=== PATIENT | female | born 1940 | race Caucasian/White ===

== ENCOUNTER 2019-12-14 16:01 | Emergency (ER) | payer MEDICARE, OTHER ==
[~2019-12-14 16:01] MED LIST: ARFO15VI3 IH; BUDE0.5A3 IH; IPRA4AER IH; TIOT18CA3 IH
[2019-12-14 16:33] LABS: BASOPHILS % (AUTO) 0.7 % (0.0-5.0); EOSINOPHILS % (AUTO) 6.3 % (0.0-8.0); HEMATOCRIT 37.3 % (36-48); LYMPHOCYTES % (AUTO) 20.4 % (21.0-51.0); MEAN CORPUSCULAR HEMOGLOBIN 29.3 pg (27.0-33.0); MEAN CORPUSCULAR HGB CONC 33.5 g/dL (32.0-36.0); MEAN CORPUSCULAR VOLUME 87.4 fL (79-99); MONOCYTES % (AUTO) 5.4 % (3.0-13.0); NEUTROPHILS % (AUTO) 66.9 % (40.0-77.0); PLATELET COUNT (AUTO) 304 K/uL (130-400); RED BLOOD CELL COUNT(AUTO) 4.27 MIL/uL (4.00-5.50); RED CELL DISTRIBUTION WIDTH 14.4 % (11.0-15.5); WHITE BLOOD COUNT (AUTO) 9.5 K/uL (4.8-10.8)
[2019-12-14 16:41] LABS: APPEARANCE,URINE Clear (CLEAR); BILIRUBIN,URINE Negative (NEGATIVE); COLOR,URINE Yellow (YELLOW); GLUCOSE, URINE (UA) Negative (NEGATIVE); KETONES,URINE Negative (NEGATIVE); LEUKOCYTE ESTERASE ,URINE Negative (NEGATIVE); NITRATE,URINE Negative (NEGATIVE); OCCULT BLOOD,URINE Negative (NEGATIVE); PROTEIN,URINE Negative (NEGATIVE)
[2019-12-14 16:43] LABS: CARBON DIOXIDE 26 mmol/L (21-32); CHLORIDE 104 mmol/L (101-111); CREATININE 0.6 mg/dL (0.5-1.5); GLOMERULAR FILTR. RATE CALC 103 mL/min (>60); GLUCOSE,RANDOM 90 mg/dL (70-105); POTASSIUM 3.9 mmol/L (3.5-5.1); SODIUM SERUM 137 mmol/L (136-145); UREA NITROGEN, BLOOD 15 mg/dL (7-18)
[2019-12-14 16:54] LABS: ALANINE AMINOTRANSFERASE 10 U/L (12-78); ALBUMIN 3.7 g/dL (3.5-5.0); ASPARTATE AMINOTRANSFERASE 18 U/L (10-37); BILIRUBIN,TOTAL 0.2 mg/dL (0.2-1.0); CREATINE KINASE, TOTAL 93 U/L (21-232); MYOGLOBIN 37 ng/mL (10-92); TOTAL PROTEIN, SERUM 7.7 g/dL (6.0-8.3); TROPONIN I < 0.04 ng/mL (0.00-0.06)
[2019-12-14 17:14] LABS: BILIRUBIN,DIRECT < 0.1 mg/dL (0.0-0.3)
[2019-12-14] MEDS ORDERED: IOHEXOL 350 MG/ML 100ML INFUS..BTL IV ONE (20:26)
== END 2019-12-15 00:43 | disposition home or self-care (01) ==
LOC: EDH 16:01
DX: R10.11 Right upper quadrant pain (principal); J44.9 Chronic obstructive pulmonary disease, unspecified; Z98.890 Other specified postprocedural states; Z87.891 Personal history of nicotine dependence
CPT/HCPCS: 36415; 71045; 74174; 76700; 80053; 80076; 81003; 82550; 83874; 84484 ×2; 85025; 93005 ×2; 99285; Q9967

== ENCOUNTER 2021-04-03 15:27 | Emergency (ER) | payer MEDICARE, OTHER ==
[2021-04-03] MEDS ORDERED: KETOROLAC 15MG/ML VIAL (15MG/ML) IV ONE (16:00)
[2021-04-03] MEDS ORDERED: CYCLOBENZAPRINE HCL 10 MG TABLET PO ONE (16:00)
[2021-04-03] MEDS ORDERED: MELO7.5T12 PO (16:48)
[2021-04-03] MEDS ORDERED: CYCL10TA16 PO (16:48)
[2021-04-03 17:27] VITALS: BP 132/85
== END 2021-04-03 17:28 | disposition home or self-care (01) ==
LOC: EDH 15:27
DX: S16.1XXA Strain of muscle, fascia and tendon at neck level, initial encounter (principal); S29.012A Strain of muscle and tendon of back wall of thorax, initial encounter; S20.214A Contusion of middle front wall of thorax, initial encounter; N20.0 Calculus of kidney; J84.10 Pulmonary fibrosis, unspecified; J44.9 Chronic obstructive pulmonary disease, unspecified; M81.0 Age-related osteoporosis without current pathological fracture; V49.49XA Driver injured in collision with other motor vehicles in traffic accident, initial encounter; Y93.89 Activity, other specified; Y92.89 Other specified places as the place of occurrence of the external cause; Y99.8 Other external cause status
CPT/HCPCS: 71250; 72125; 96374; 99284; J1885